=== PATIENT | female | born 1965 | race Caucasian/White ===

== ENCOUNTER 2018-09-22 14:36 | Emergency (ER) | payer OTHER ==
[~2018-09-22] VITALS: Ht 154.9 cm; Wt 59.0 kg
[~2018-09-22 14:36] MED LIST: Ativan0.5 MG PO; CYCL10 PO
[2018-09-22] MEDS ORDERED: CYCL10 PO (14:59)
[2018-09-22] MEDS ORDERED: GABA100 PO (14:59)
[2018-09-22] MEDS ORDERED: ACID REDUCER 1150 MG PO (14:59)
[2018-09-22] MEDS ORDERED: SUMA25 PO (14:59)
[2018-09-22] MEDS ORDERED: DIPH50 PO (15:00)
[2018-09-22] MEDS ORDERED: ACET325 PO (15:00)
[2018-09-22 15:01] LABS: BASOPHILS PERCENT AUTO 2 % (0-2); EOSINOPHILS ABSOLUTE AUTO 0.12 K/mm3 (0.00-0.68); EOSINOPHILS PERCENT AUTO 2 % (0-6); Hematocrit 38.3 % (33.0-51.0); Hemoglobin 12.2 g/dL (11.5-16.0); IMMATURE GRAN ABSOLUTE AUTO 0.02 K/mm3 (0.00-0.10); IMMATURE GRAN PERCENT AUTO 0 % (0-1); LYMPHOCYTES ABSOLUTE AUTO 2.59 K/mm3 (0.84-5.20); LYMPHOCYTES PERCENT AUTO 46 % (21-46); MONOCYTES ABSOLUTE AUTO 0.31 K/mm3 (0.16-1.47); MONOCYTES PERCENT AUTO 6 % (4-13); Mean Corpuscular HGB 34.3 pg (26.0-34.0); Mean Corpuscular HGB Conc 31.9 g/dL (31.5-36.5); Mean Corpuscular Volume 108 fL (80-100); Mean Platelet Volume 9.3 fL (9.1-12.4); NEUTROPHILS ABSOLUTE AUTO 2.45 K/mm3 (1.96-9.15); NEUTROPHILS PERCENT AUTO 44 % (41-73); Platelet Count 252 K/mm3 (150-400); RDW Coefficient Variation 12.4 % (11.7-14.2); RDW Standard Deviation 49.9 fL (35.1-46.3); Red Blood Cell Count 3.56 M/mm3 (3.80-5.20); White Blood Cell Count 5.59 K/mm3 (4.00-11.30)
[2018-09-22 15:18] LABS: International Normalized Ratio 0.93; Prothrombin Time Results 9.6 Sec (9.7-11.5)
[2018-09-22 15:31] LABS: Alanine Aminotransfer (ALT/SGP 21 U/L (12-78); Albumin, Blood 3.4 g/dL (3.4-5.0); Alk Phos 89 U/L (50-136); Anion Gap 6 mmol/L (6-16); Aspartate Aminotrans (AST/SGOT 18 U/L (12-37); Bilirubin, Total 0.1 mg/dL (0.1-1.0); Blood Urea Nitrogen 10 mg/dL (8-24); Bun/Creatinine Ratio 14.4 (12.0-20.0); CO2, Blood 27 mmol/L (21-32); Calcium, Blood 8.1 mg/dL (8.5-10.1); Chloride, Blood 107 mmol/L (98-108); Creatinine, Blood 0.69 mg/dL (0.40-1.00); Globulin, Blood 3.4 g/dL (2.2-4.0); Glomerular Filtration Rate >60 (60-); Glucose, Blood 77 mg/dL (70-99); Potassium, Blood 4.1 mmol/L (3.5-5.5); Sodium, Blood 140 mmol/L (136-145); Total Protein, Blood 6.8 g/dL (6.4-8.2); Troponin I <0.015 ng/mL (0.000-0.040)
== END 2018-09-22 16:35 | disposition home or self-care (01) ==
LOC: ER 14:36
PROVIDERS: Physician Assistant
DX: F41.9 Anxiety disorder, unspecified (principal); R07.9 Chest pain, unspecified; K21.9 Gastro-esophageal reflux disease without esophagitis; G43.909 Migraine, unspecified, not intractable, without status migrainosus; F17.210 Nicotine dependence, cigarettes, uncomplicated; Z79.899 Other long term (current) drug therapy
CPT/HCPCS: 71046; 80053; 84484; 85025; 85610; 85730; 93005; 93010; 99285-25

== ENCOUNTER → 2019-01-31 | Outpatient (CLI) | payer OTHER ==
[~2019-01-31] MED LIST changes: +ACET325 PO; +ACID REDUCER 1150 MG PO; +DIPH50 PO; +GABA100 PO; +SUMA25 PO
== END ==
LOC: LAB 16:23 → LAB SHORT 16:23
DX: Z48.02 Encounter for removal of sutures (principal); L08.9 Local infection of the skin and subcutaneous tissue, unspecified; L92.3 Foreign body granuloma of the skin and subcutaneous tissue
CPT/HCPCS: 87070; 87077; 87147; 87186; 87205

== ENCOUNTER → 2021-10-20 | Outpatient (CLI) | payer OTHER ==
[2021-10-21 15:12] LABS: HPV 16 Negative (Negative); HPV 18 Negative (Negative); HPV OTHER HR TYPES Negative (Negative)
== END | disposition home or self-care (01) ==
LOC: LAB SHORT 11:45
PROVIDERS: Physician Assistant
DX: Z01.419 Encounter for gynecological examination (general) (routine) without abnormal findings (principal)
CPT/HCPCS: 87624; G0123

== ENCOUNTER → 2021-11-10 | Outpatient (CLI) | payer OTHER | LOC: LAB SHORT 07:54 → PLD 07:54 | DX: N84.1 Polyp of cervix uteri (principal) | CPT/HCPCS: 88305 ==

== ENCOUNTER 2023-03-03 10:16 | Day surgery (SDC) | payer OTHER ==
[~2023-03-03] VITALS: Ht 157.5 cm; Wt 62.2 kg
[2023-03-03 13:40] VITALS: BP 121/86
== END 2023-03-03 13:39 | disposition home or self-care (01) ==
LOC: ORSCSDS 10:16
DX: K21.9 Gastro-esophageal reflux disease without esophagitis (principal); R10.13 Epigastric pain; I21.9 Acute myocardial infarction, unspecified; G62.9 Polyneuropathy, unspecified; K29.70 Gastritis, unspecified, without bleeding; I25.10 Atherosclerotic heart disease of native coronary artery without angina pectoris; K44.9 Diaphragmatic hernia without obstruction or gangrene; I50.9 Heart failure, unspecified; K59.09 Other constipation; F17.210 Nicotine dependence, cigarettes, uncomplicated; Z79.899 Other long term (current) drug therapy
CPT/HCPCS: 88305; 88342; J7120

== ENCOUNTER 2024-04-08 16:17 | Emergency (ER) | payer OTHER ==
[~2024-04-08] VITALS: Ht 162.6 cm; Wt 59.0 kg
[~2024-04-08 16:17] MED LIST changes: +FAMO20; +NITR.4SL; +OMEP20ER; +OXAYDO5 M1 PO; +TOPI25 PO
[2024-04-08 16:46] LABS: BASOPHILS ABSOLUTE AUTO 0.09 K/mm3 (0.00-0.23); BASOPHILS PERCENT AUTO 1 % (0-2); EOSINOPHILS ABSOLUTE AUTO 0.19 K/mm3 (0.00-0.68); EOSINOPHILS PERCENT AUTO 2 % (0-6); Hematocrit 35.4 % (33.0-51.0); Hemoglobin 11.6 g/dL (11.5-16.0); IMMATURE GRAN ABSOLUTE AUTO 0.05 K/mm3 (0.00-0.10); IMMATURE GRAN PERCENT AUTO 1 % (0-1); LYMPHOCYTES ABSOLUTE AUTO 2.48 K/mm3 (0.84-5.20); LYMPHOCYTES PERCENT AUTO 24 % (21-46); MONOCYTES ABSOLUTE AUTO 0.45 K/mm3 (0.16-1.47); MONOCYTES PERCENT AUTO 4 % (4-13); Mean Corpuscular HGB 33.9 pg (26.0-34.0); Mean Corpuscular HGB Conc 32.8 g/dL (31.5-36.5); Mean Corpuscular Volume 104 fL (80-100); Mean Platelet Volume 10.2 fL (9.1-12.4); NEUTROPHILS ABSOLUTE AUTO 7.25 K/mm3 (1.96-9.15); NEUTROPHILS PERCENT AUTO 69 % (41-73); Platelet Count 198 K/mm3 (150-400); RDW Coefficient Variation 12.7 % (11.7-14.2); RDW Standard Deviation 48.1 fL (35.1-46.3); Red Blood Cell Count 3.42 M/mm3 (3.80-5.20); White Blood Cell Count 10.51 K/mm3 (4.00-11.30)
[2024-04-08 17:02] LABS: Albumin/Globulin Ratio 1.1 (0.8-1.8); Bilirubin, Total 0.2 mg/dL (0.1-1.0); Bun/Creatinine Ratio 7.6 (12.0-20.0); Calcium, Blood 7.5 mg/dL (8.5-10.1); Creatinine, Blood 0.66 mg/dL (0.40-1.00); Globulin, Blood 2.7 g/dL (2.2-4.0); Total Protein, Blood 5.7 g/dL (6.4-8.2)
[2024-04-08] MEDS ORDERED: Ketorolac Tromethamine 15mg Vial IV ONE (17:20)
[2024-04-08 17:45] LABS: Source, Urine Clean Catch
[2024-04-08 17:48] LABS: Appearance, Urine Clear (Clear); Bilirubin, Urine Neg (Neg); Blood, Urine Neg (Neg); Color, Urine Yellow (P-Yellow); Glucose Qualitative, Urine Neg (Neg); Ketones, Urine Neg (Neg); Leukocyte Esterase, Urine 2+ (Neg); Nitrite, Urine Neg (Neg); Protein, Urine Neg (Neg); Urobilinogen, Urine NORM (Normal)
[2024-04-08] MEDS ORDERED: Potassium Chloride 20 MEQ TabCR PO ONE (17:50)
[2024-04-08 17:54] LABS: Red Blood Cells, Urine 0-2 /hpf (0-2); Squamous Epithelial Cells Few /hpf (Few)
[2024-04-08 17:55] LABS: Bacteria Few /hpf
[2024-04-08] MEDS ORDERED: CEFD300 PO (20:09)
[2024-04-08] MEDS ORDERED: Cefdinir 300 MG Cap PO ONE (20:10)
[2024-04-08 20:54] VITALS: BP 131/83
== END 2024-04-08 20:55 | disposition home or self-care (01) ==
LOC: ER 16:17
PROVIDERS: Emergency Medicine; Student in an Organized Health Care Education/Training Program
DX: R07.89 Other chest pain (principal); N39.0 Urinary tract infection, site not specified; E87.6 Hypokalemia; K21.9 Gastro-esophageal reflux disease without esophagitis; G43.909 Migraine, unspecified, not intractable, without status migrainosus; F17.210 Nicotine dependence, cigarettes, uncomplicated; Z79.899 Other long term (current) drug therapy; Z88.8 Allergy status to other drugs, medicaments and biological substances
CPT/HCPCS: 71046; 74177; 80053; 81001; 84484; 85025; 93005; 93010; 96374-59; 99285-25; A9270; J1885; Q9967

== ENCOUNTER 2024-12-05 06:48 | Day surgery (SDC) | payer OTHER ==
[~2024-12-05] VITALS: Ht 154.9 cm; Wt 58.7 kg
[2024-12-05] VITALS (18 sets, daily range): BP systolic 91–146; BP diastolic 70–91
[~2024-12-05 06:48] MED LIST changes: +CEFD300 PO; +Lactated Ringer's 1,000 ML IV SCH
[2024-12-05] MEDS ORDERED: propofoL 40 ML IV ONE (07:02)
--- NOTE | 2024-12-05 07:27 | NUR ---
History, Chart, Medications and Allergies reviewed before start of procedure. Lungs clear T/O to Auscultation. Patient confirms NPO status and agrees with scheduled surgery. Patient states colon prep results clear.
--- NOTE | 2024-12-05 07:32 | NUR ---
12/05/24 07Glendy Benitez CONFIRMED AND REVIEWED H&P, MEDCICATIONS, ALLERGIES, MEDICAL HISTORY, RESPIRATORY HISTORY, VITAL SIGNS, 3-LEAD EKG, CONSENTS, AND PHYSICIAN ORDERS. PATIENT CONFIRMS NPO STATUS AND AGREES WITH SCHEDULED PROCEDURE. MONITOR INTACT WITH CONTINUOUS PULSE OXIMETRY, CAPNOGRAPHY, 3-LEAD EKG, INTERMITTENT BP. SUPPLEMENTAL O2 TO BE TITRATED THROUGHOUT PROCEDURE TO MAINTAIN O2 SATURATION ABOVE 90%. PATIENT DETERMINED TO BE ASA APPROPRIATE FOR PROPOFOL SEDATION PRIOR TO START OF PROCEDURE BY DR. MITCHELL.
[2024-12-05] MEDS ORDERED: Midazolam HCl 1MG / ML 2ML Vial ONE (07:43)
--- NOTE | 2024-12-05 08:37 | NUR ---
Patient up to Ambulate independently. Gait steady. Discharge instructions reviewed with patient. Patient verbalizes understanding. Copy given to patient to take home. Patient States Post-Procedure ride home has been arranged. Discharged via wheelchair to [facility] for ride home.
--- NOTE | 2024-12-05 10:00 | NUR ---
PT BEEN WAITING IN [facility] FOR RIDE HOME, RIDE ARRIVED, PT DISCHARGED HOME VIA RIDE FROM [facility]. PT BEEN ASSISTED WITH [facility]S PRN. PT REPORTS READY TO GO HOME TOLERATING PO.
== END 2024-12-05 10:00 | disposition home or self-care (01) ==
LOC: ORSCMMR 06:48 → ORD 06:48 → ORSCMMR 06:49 → ORD 08:00
PROVIDERS: Internal Medicine Gastroenterology
PROC: 0DBM8ZX Excision of Descending Colon, Via Natural or Artificial Opening Endoscopic, Diagnostic (ICD-10-PCS; principal; 2024-12-05 08:00)
PROC: 0DBN8ZX Excision of Sigmoid Colon, Via Natural or Artificial Opening Endoscopic, Diagnostic (ICD-10-PCS; principal; 2024-12-05 08:00)
DX: Z12.11 Encounter for screening for malignant neoplasm of colon (principal); R19.5 Other fecal abnormalities; K63.5 Polyp of colon; K64.8 Other hemorrhoids; F41.1 Generalized anxiety disorder; F17.210 Nicotine dependence, cigarettes, uncomplicated; Z79.899 Other long term (current) drug therapy
CPT/HCPCS: 88305; J2250; J2704; J7120